=== PATIENT | female | born 1975 | race Two or more races ===

== ENCOUNTER 2024-03-08 20:05 | Emergency (ER) | payer SELFPAY ==
[2024-03-08 20:06] VITALS: BMI 33.2
== END 2024-03-08 20:21 | disposition left against medical advice (07) ==
LOC: SERX 20:26
PROVIDERS: Emergency Provider Emergency Medicine
DX: Z53.21 Procedure and treatment not carried out due to patient leaving prior to being seen by health care provider (principal)